=== PATIENT | male | born 1960 | race Caucasian/White ===

== ENCOUNTER 2024-02-06 11:47 | Outpatient (CLI) | payer BC, SELFPAY ==
--- NOTE | 2024-02-06 08:30 | DI.RAD_ITS ---
Exam(s) XR HIP RT COMPLETE AP PELVIS EXAM: XR HIP RT COMPLETE AP PELVIS CLINICAL HISTORY: eval R hip. TECHNIQUE: 2D digital imaging was performed. Two views COMPARISON: No exams were available for comparison FINDINGS: BONES: No acute fracture is present. No bony destructive lesion is seen. Enthesophytes at the iliac wings. JOINTS: No dislocation present. Severe loss of joint space of the right hip. Prominent periarticul ar spurring. Left hip joint space maintained. The SI joints and pubic symphysis are unremarkable. SOFT TISSUE: Calcifications medial right upper thigh. IMPRESSION: Changes of the right hip. DATA REPOSITORY: RADIATION DOSE DELIVERED:
== END 2024-02-06 11:48 | disposition home or self-care (01) ==
LOC: DIORS 11:47
PROVIDERS: PCP Internal Medicine; Visit Provider Student in an Organized Health Care Education/Training Program
DX: M16.11 Unilateral primary osteoarthritis, right hip (principal)
CPT/HCPCS: 73502

== ENCOUNTER 2024-03-12 04:39 | Outpatient (CLI) | payer BC, SELFPAY ==
[2024-03-12 10:16] LABS: HCT 48.5 % (40.0-50.0); HGB 16.6 g/dL (13.5-17.5); MCH 31.4 pg (27.0-33.0); MCHC 34.2 % (32.0-36.0); MCV 92 fL (80-95); MPV 10.2 fL (8.0-11.0); Platelet Count 185 10^3/uL (130-400); RBC 5.29 10^6/uL (4.36-5.78); RDW 12.5 % (11.8-14.1); RDW-SD 42.6 fL; WBC 7.02 10^3/uL (4.4-10.8)
[2024-03-12 10:55] LABS: BUN 22 mg/dL (7-18); CREATININE 1.1 mg/dL (0.70-1.30); Chloride 105 mmol/L (98-107); Estimated GFR 75.43 (mL/min/1.73m2); Glucose 103 mg/dL (74-106); Potassium 4.3 mmol/L (3.5-5.1); Sodium 141 mmol/L (136-145)
== END 2024-03-12 04:40 | disposition home or self-care (01) ==
LOC: LBO 04:39
PROVIDERS: PCP Internal Medicine; Visit Provider Student in an Organized Health Care Education/Training Program
DX: M16.11 Unilateral primary osteoarthritis, right hip (principal); Z01.818 Encounter for other preprocedural examination
CPT/HCPCS: 36415; 80048; 85027

== ENCOUNTER 2024-03-21 07:34 | Day surgery (SDC) | payer BC, SELFPAY ==
[2024-03-21] VITALS (23 sets, daily range): BP systolic 106–162; BP diastolic 61–97; PULSE 54–67; RESP 12–27; TEMP 36.1–36.8; O2SAT 92–98; BMI 31.2
--- NOTE | 2024-03-21 07:05 | W.PM.DSUDISC ---
Date of service: 03/21/24 Discharge Plan Disposition Patient Disposition: Home Condition: Good Discharge Details Reason For Visit: R THR Attending Provider: Aric Ronquillo Primary Care Provider: Xochilt Funes Home Meds and New Rx's Prescriptions: New acetaminophen 500 mg tablet 1,000 mg PO TID Qty: 90 3RF celecoxib 200 mg capsule 200 mg PO BID Qty: 60 0RF pantoprazole 40 mg tablet,delayed release (DR/EC) 40 mg PO DAILY Qty: 30 0RF dexamethasone 4 mg tablet 4 mg PO DAILY Qty: 2 0RF oxycodone 5 mg tablet 5 mg PO Q4H MDD 6 tabs PRN (Reason: pain) Qty: 20 0RF Continued allopurinol 100 mg tablet 100 mg PO DAILY Eliquis 5 mg tablet 5 mg PO BID cetirizine 10 mg tablet 10 mg PO DAILY PRN Discharge Instructions Additional Instructions: Total Hip Discharge Instructions Activity: The most important activity is to walk. You should try to take short walks a few times a day. You have no restrictions on movement or positioning, but do not try to force what you do. You will find some stiffness and weakness with hip flexion (lifting your knee). Do not try to strengthen this too early, continue to practice walking and stairs and this will come. - Outpatient physical therapy can be helpful to help return you to a normal gait and improve your flexibility and strength. This can start around 2 weeks. For some patients, it?s not necessary. Usually this is determined at the time of discharge or at the first post-operative visit. - You should wear the LUCIO hose on both legs for 2 weeks. Dressing: Keep the surgical dressing in place for at least one week. After the first week it may be removed and replace with light gauze and tape or nothing. It may get wet after 3 days but avoid soaking the dressing. If it gets wet, just lightly pat dry. It is important to always keep some gauze between skin folds, especially when you are sitting. Spend some time with the wound exposed when you are lying flat as the incision does wrinkle onto itself. Medications: - You should take Tylenol and an anti-inflammatory Celebrex as your primary pain control medications. If the Celebrex is too expensive or not covered, please call the office for another alternative (Advil/Ibuprofen or Naproxen/Aleve). - You have been prescribed a stronger pain medication Oxycodone for breakthrough pain, take as needed as prescribed. - You have also been prescribed a stomach acid reduction agent Pantoprozole to help reduce stomach acid and reflux. - You have also been prescribed Decadron to help with post-operative nausea and pain. You will take this for two days starting tomorrow. - You will be taking your apixaban for DVT prevention unless instructed otherwise. - If you have constipation you should take Colace or Miralax (both [id number]). It takes most people 3-4 days to have a bowel movement. Follow-up: 2 weeks If you have any acute concerns or questions, please do not hesitate to contact the office at [phone]. You may contact Dr. Ronquillo with any questions after hours through the hospital at [phone] or on his cell phone at [phone]. Referrals: Aric Ronquillo MD [ [facility] STAFF PHYSICIAN] - Equipment/Supplies: Walker Activity:: Activity as Tolerated Shower/Bathe:: 72 hours Diet:: As Tolerated Discharge Orders Discharge Orders: Discharge Order (Routine); Ordered 03/21/24 Ordered By: Bird Malcolm DS: Diagnosis Discharge Diagnosis (1) Degenerative joint disease of right hip: Status: Resolved
[2024-03-21] MEDS: Celecoxib 200 MG CAP 400 MG PO (08:17)
[2024-03-21] MEDS: Acetaminophen 500 MG TAB 1000 MG PO (08:17)
[2024-03-21] MEDS: Normal Saline 500 ML 30 ML IV (08:38)
--- NOTE | 2024-03-21 08:48 | W.ANESPRE ---
General Info Date of Service Date Performed: 03/21/24 Height: 5 ft 7 in Weight: 90.6 kg Body Mass Index (BMI): 31.2 Surgical Procedure: Operation Date: 03/21/24 10:05 Proposed Procedure Side Surgeon p Hip Total Hip Anterior, ACTIS Right Aric Ronquillo MD Meds Allergies and Home Medications Allergies Allergy/AdvReac Type Severity Reaction Status Date / Time grass pollen Allergy Other (See Verified 03/21/24 08:09 Comment) Home Medication ?Medication ?Instructions ?Recorded apixaban 5 mg tablet (Eliquis) 5 mg PO BID 12/07/23 cetirizine 10 mg tablet 10 mg PO DAILY PRN 12/07/23 allopurinol 100 mg tablet 100 mg PO DAILY 03/12/24 acetaminophen 500 mg tablet 1,000 mg (2 x 500 mg) PO TID #90 03/21/24 tabs celecoxib 200 mg capsule 200 mg PO BID #60 caps 03/21/24 dexamethasone 4 mg tablet 4 mg PO DAILY #2 tabs 03/21/24 oxycodone 5 mg tablet 5 mg PO Q4H PRN pain #20 tabs 03/21/24 pantoprazole 40 mg tablet,delayed 40 mg PO DAILY #30 tabs 03/21/24 release Current Visit Medications: Current Medications Generic Name Dose Route Start Last Admin Trade Name Freq PRN Reason Stop Dose Admin Acetaminophen 1,000 mg 03/21/24 06:00 03/21/24 08:17 Acetaminophen 500 Mg Tab PO 03/21/24 23:59 1,000 mg PREOP ERYN Administration Acetaminophen 1,000 mg 03/21/24 07:03 Acetaminophen 500 Mg Tab PO 04/20/24 07:02 TID PRN PRN Analgesia Celecoxib 400 mg 03/21/24 06:00 03/21/24 08:17 Celecoxib 200 Mg Cap PO 03/21/24 23:59 400 mg PREOP ERYN Administration Docusate Sodium 100 mg 03/21/24 07:03 Docusate Sodium 100 Mg Cap PO 04/20/24 07:02 BID PRN PRN Constipation Cefazolin Sodium/Dextrose 2 gm in 50 mls @ 100 mls/hr 03/21/24 06:00 Ancef Duplex IVPB 03/21/24 23:59 PREOP ERYN Tranexamic Acid/Sodium Chloride 1,000 mg in 100 mls @ 600 mls/hr 03/21/24 06:00 IVPB 03/21/24 23:59 PREOP ERYN Sodium Chloride 500 mls @ 30 mls/hr 03/21/24 08:00 03/21/24 08:38 Saline 500ml Bag IV 04/20/24 07:59 30 mls/hr INFUSION ERYN Administration IV Miscellaneous Supplies 1 each 03/21/24 06:00 Iv Access IV 03/21/24 23:59 DIRECTED ERYN Ondansetron HCl 4 mg 03/21/24 07:03 Ondansetron 4 Mg/2 Ml Vial IVP 04/20/24 07:02 Q6H PRN PRN Nausea Oxycodone HCl 0 mg 03/21/24 07:03 Oxycodone 5 Mg Tab PO 04/20/24 07:02 Q3H PRN PRN Pain Polyethylene Glycol 17 gm 03/21/24 07:03 Polyethylene Glycol 3350 17 Gm Packet PO 04/20/24 07:02 BID PRN PRN Constipation Sodium Chloride 0 ml 03/21/24 06:00 Normal Saline Flush 10 Ml Syr IV 03/21/24 23:59 PRN PRN Sodium Chloride 0 ml 03/21/24 06:00 Normal Saline 10 Ml Vial IJ 03/21/24 23:59 DIRECTED PRN Sterile Water 0 ml 03/21/24 06:00 Water,Injection,Sterile 10 Ml Vial IJ 03/21/24 23:59 DIRECTED PRN PFSH Active Problems Active Problems: Problem Status Onset Code Degenerative joint disease of right hip Chronic M16.11 Protein C deficiency Acute D68.59 Prostate nodule Acute N40.2 Prediabetes Acute R73.03 Acute pulmonary embolism Acute I26.99 Medical History Medical History Kidney stones DVT of lower extremity (deep venous thrombosis) Tobacco Smoking/Tobacco Use Status: Never Alcohol Alcohol Intake: current Alcohol intake frequency: a few times a week Substance Use Substance use: Never Substance use type: does not use Vital Signs and Lab Results Vital Signs Most Recent Vital Signs in EMR: Most Recent Vital Signs Temp Pulse Resp BP Pulse Ox 36.8 C 65 20 162/97 H 93 03/21/24 08:03 03/21/24 08:03 03/21/24 08:03 03/21/24 08:03 03/21/24 08:03 Lab Results Blood Type / Crossmatch: No Data to Display Complete Blood Count: White Blood Count 7.02 10^3/uL (4.4-10.8) 03/12/24 10:08 Red Blood Count 5.29 10^6/uL (4.36-5.78) 03/12/24 10:08 Hemoglobin 16.6 g/dL (13.5-17.5) 03/12/24 10:08 Hematocrit 48.5 % (40.0-50.0) 03/12/24 10:08 Platelet Count 185 10^3/uL (130-400) 03/12/24 10:08 Complete Metabolic Panel: Sodium 141 mmol/L (136-145) 03/12/24 10:08 Potassium 4.3 mmol/L (3.5-5.1) 03/12/24 10:08 Chloride 105 mmol/L (98-107) 03/12/24 10:08 Carbon Dioxide 26.0 mmol/L (21.0-32.0) 03/12/24 10:08 BUN 22 mg/dL (7-18) H 03/12/24 10:08 Creatinine 1.1 mg/dL (0.70-1.30) 03/12/24 10:08 Est GFR (CKD-EPI 2020) 75.43 (mL/min/1.73m2) 03/12/24 10:08 Calcium 9.0 mg/dL (8.5-10.1) 03/12/24 10:08 Glucose 103 mg/dL (74-106) 03/12/24 10:08 Liver Function Panel: No Data to Display Coagulation Panel: No Data to Display Cardiac Panel: No Data to Display Arterial Blood Gas: No Data to Display Venous Blood Gas: No Data to Display Pancreas Panel: No Data to Display Thyroid Panel: No Data to Display Infectious Disease: No Data to Display Blood Cultures: No Data to Display Toxicology Panel: No Data to Display Anesthesia Assessment and Plan Anesthesia History Personal History: No History of Anesthesia Complications Family History: No Family History of Anesthesia Complications Exercise Tolerance Exercise Tolerance: Metabolic Equivalents>4 Pertinent Negatives Pertinent Negatives: No Symptoms of GERD, No Major Cardiovascular Symptoms or Complaints, No Major Pulmonary Symptoms or Complaints and No History of CVA/TIA Cardiac & Pulmonary Exam Cardiac Exam: Normal S1/S2 Heart Sounds Pulmonary Exam: Clear Bilateral Breath Sounds Implantable Cardiac Device Does patient have a Pacemaker or an ICD?: No Airway Exam Known Difficult Airway: No Mallampati Class: 1 Mouth Opening: Normal (> 3cm) Thyromental Distance: Greater than 3 cm Neck Range of Motion: Full ROM Neck Circumference: Normal Teeth Condition: Normal Dentition ASA Classification ASA Score: ASA 2 Emergency Case?: No NPO Status NPO Status: NPO Clears >2 hours, Solids >8 hours Anesthesia Plan Resuscitation Status: Full Code Anesthesia Technique: Spinal Anesthesia Airway Planned: Natural Airway Monitors Used: Standard Monitors
[2024-03-21] MEDS: ceFAZolin 2 GM/50 ML BAG IVPB (10:03)
[2024-03-21] MEDS: TRANEXAMIC ACID/SOD. CHL. 1,000 MG/100 ML BAG 600 MG IVPB (10:10)
--- NOTE | 2024-03-21 11:10 | DI.RAD_ITS ---
Exam(s) XR HIP RT IN OR EXAM: XR HIP RT IN OR CLINICAL HISTORY: Osteoarthritis of right hip. TECHNIQUE: 2D and realtime digital imaging was performed. COMPARISON: CR XR HIP RT COMPLETE AP PELVIS from 02/06/2024 FINDINGS: A hard copy image shows placement of a right hip prosthesis. The alignment appears satisfactory. Please see procedure note for details. Fluoro time: 32seconds RADIATION DOSE DELIVERED: Kar=4.43 mGy
--- NOTE | 2024-03-21 11:21 | W.PM.OP ---
Operative Note Operative Note PRE-OP DIAGNOSIS: Right Hip Osteoarthritis POST-OP DIAGNOSIS: same PROCEDURE: Right Anterior Total Hip Arthroplasty with Intraoperative Navigation SURGEON: Aric Ronquillo RESTAURANT DELIVERY DRIVER: Bird Malcolm ANESTHESIA TYPE: Spinal Refer to Anesthesia Record ESTIMATED BLOOD LOSS: 100 PATHOLOGY: none sent TOURNIQUET TIME: 0 COMPLICATIONS: None Patient was transported to: PACU Patient's condition: stable Implants: 1. Depuy [place] Acetabular Component, 54mm 2. Depuy Acetabular Liner, [id number] 3. Depuy Actis High Offset Collared Femoral Stem, Size 6 4. Depuy Altrx Ceramic Femoral Head, Size 36+1.5mm Indications: I have seen Rick in clinic for symptoms of hip arthritis, confirmed with radiographic findings. He has exhausted nonoperative methods and was having significant limitations in daily function and desired better function and less pain. I discussed the technical details of a hip replacement. I explained the risks of the procedure to include, but not limited to, bleeding, infection, pain, stiffness, fracture, damage to nerves and vessels, damage to muscles and tendons, loosening, instability, leg length inequality, need for repeat procedure, blood clot and cardiopulmonary demise. Despite these risks, Rick elected to proceed. Findings: There was significant signs of arthritis throughout the hip, particularly about the femur. Procedure Description: Abbe was greeted in the preoperative holding area where the correct side was identified and marked. The consent was reviewed with the patient and signed. The history and physical was updated. All questions were answered. He was taken back to the operating room. A spinal anesthestic was then administered. The feet were wrapped with cast padding and Coban and then placed into the boot liners and then into the boots. Care was taken to protect the skin and make sure the heels were fully down and the boots were stable. The patient was then positioned onto the HANA table. Both legs were held in a neutral position. SCDs were applied. The patient was then slid down onto a peroneal post. Prophylactic antibiotics in the form of Cefazolin were administered. 1g of Tranxemic Acid was given intravenously within 30 minutes of incision. The right leg was then prepped with Chloraprep and draped in a standard fashion. A second prep with Chloraprep was performed prior to placement of a shower-curtain type drape with Iodine impregnated skin protection. A timeout to confirm correct identity, side and site, procedure, allergies, anesthesia, and medical concerns was performed. An obliquely oriented incision was made starting lateral to the ASIS and running distal over the Tensor Fascia Dang (TFL) muscle belly toward the fibular head, approximately 10cm. The skin and soft tissue was dissected sharply, through Lorraine?s fascia, and to the fascia of the TFL. With the fascia and superior border of the IT band identified, the fascia was incised with a new knife just above any perforators from the IT band. The TFL muscle belly was bluntly dissected away from the fascia and moved laterally. The fat between TFL and rectus was identified to ensure the dissection was not within the TFL. Blunt dissection created space between abductors and the capsule and retractor was placed over the lateral femoral neck. The fibers of the rectus femoris tendon were identified and these were freed from the anterior capsule. A second cobra retractor was placed around the medial femoral neck. The TFL was further retracted laterally to show the deep fascia. Careful dissection through this layer identified three main crossing vessels of the lateral femoral circumflex. These were cauterized in multiple locations and then cut without any noticeable bleeding. The TFL was further released bluntly from the deep fascia to expose anterior hip capsule and fat The soft tissue orthopaedic retractor was then placed beneath the TFL and against sartorius and medial soft tissues to protect and retract the soft tissues. A T-capsulotomy was then performed starting at the superior lateral acetabulum and moving distally to the intertrochanteric ridge. These capsular flaps were tagged with a No. 1 Ethibond and elevated from within. The capsular flaps were released to the shoulder of the lateral neck and to the lesser trochanter to give excellent visualization of the proximal femur. A neck osteotomy was performed using an oscillating saw based on preoperative templates. This cut started in the shoulder and of the lateral neck and exited medially. The saw was at all times directed medially to avoid injury to the greater trochanter. Gross traction was applied to the leg and the osteotomy opened. The femoral head was removed with a corkscrew, making sure to protect the TFL on its exit. Traction was released after head removal. This was measured on the back table to determine the starting reamer size. Portions of the rectus obscuring visualization were minimally elevated off the superior acetabulum. An anterior retractor was placed over the anterior wall between capsule and labrum and attached to the Gripper retraction system. The femur was rotated to 90 degrees and medial capsule was fully released until the lesser trochanter was palpable and visible; the femur was returned to 30 degrees. A posterior retractor was placed similarly between capsule and labrum. This provided excellent visualization. The contents of the cotyloid fossa were removed with electrocautery and the labrum was removed with a knife. There was a notable floor osteophyte. There was significant chondromalacia of the superior acetabulum. Acetabular reaming began with a 48mm reamer. This first reaming was directed anterior to posterior and medial to get down to the true floor. This was inspected and reamed until the true floor was reached. The anterior retractor was then released and entry and exit was provided by traction on the capsular flaps. I then reamed sequentially up to a 54mm reamer where good fit was obtained. The larger reamers were oriented based on anatomical reference of the anterior and lateral dumont to ensure proper abduction and anteversion. Positioning and size was confirmed with the fluoroscopy. A 54mm Depuy [place] acetabular component was selected. The acetabulum was reamed around the periphery with the selected acetabular size to prevent a rim fit. The deep tissues were irrigated. The acetabular component was then impacted in a position of about 40-45 degrees of abduction and 15-20 degrees of anteversion, using the patient?s anatomy as the ultimate landmark. Fluoroscopy was used to confirm this. There was excellent character actor of the acetabular component and the inserting handle was removed. The acetabular liner, Depuy [id number] polyethylene liner, was inserted and lined up with the tines of the acetabular component. There was no soft tissue interposition. The liner was then impacted into position and confirmed to be well-seated. A portion of the karen-articular cocktail was then injected around the acetabulum into the capsule and periosteum. This cocktail consisted of 123mg of Ropivacaine, 0.25mg of Epinephrine, 0.04mg of Clonidine, and 15mg of Ketorolac, diluted to 50cc. The leg was rotated to 120 degrees. Any remaining medial capsule was released until the lesser trochanter was easily palpable. A retractor was placed medially. The lateral capsule was further released into the shoulder to allow access to the greater trochanter. A Hair retractor was placed over the greater trochanter which allowed the trochanter to flip in front of the capsule for excellent exposure. The leg was brought down into maximal extension and 20 degrees of adduction while ensuring there was no impingement on the acetabulum. Any remnant capsule within the trochanter was released. Piriformis and obturator externis were identified and protected. There was excellent access to the proximal femur. The lateral neck remnant was removed with a rongeur. A blunt canal probe was used to identify the canal and trajectory for later broaching. A box osteotome initiated the broach course. A small curved rasp and a curved curette were used to work laterally. Broaching then began with a starter Actis broach. This was inserted manually around the trochanter and into the canal before mallet blows. The broach was seated to a few millimeters below the cut level based on the neck cut and the preoperative template. Sequential broaching was continued with the Dubbse pneumatic broaching device until a tight fit was obtained with good rotational control of the femur. A trial high offset neck was inserted along with a +1.5 trial head. The leg was brought out of extension and adduction and then reduced with traction and internal rotation. The leg was stable anteriorly in a position of 30 degrees of extension and 90 degrees of external rotation. Fluoroscopy was used to ensure there was no fracture and the stem was seated well. Leg lengths were checked with an AP pelvis and pelvic reference points. Laiyaoyao navigation system was used to confirm appropriate positioning and leg length and offset. Once content with the desired offset and leg lengths, the leg was brought back into extension, external rotation and adduction. The periosteum and surrounding tissue was injected with remaining portion of the karen-articular cocktail. The proximal femur was irrigated as well as the deep tissues. The [employer] Actis high offset collared stem, size 6, was then manually inserted into the proximal femur making sure to control rotation. It was then malleted into position with light blows, giving breaks to allow bone expansion and decrease risk of fracture. The selected Depuy Altrx Ceramic Head, size 36+1.5mm, was then placed onto the clean and dry trunnion and secured with impaction onto the tapered fit. The leg was brought back out of extension and adduction and reduced with traction and internal rotation. Stability was confirmed with no shuck at 90 degrees of external rotation and 30 degrees of extension. No impingement through range of motion arc. Final x-ray images were obtained with fluoroscopy to confirm adequate positioning and no intraoperative fracture. The deep tissues were thoroughly irrigated with Surgiphor, betadine solution. This was allowed to sit in the wound for 3 minutes before being thoroughly irrigated out with normal saline. The capsule was then reapproximated with the previously placed Ethibond sutures. The TFL fascia was finally closed with a No. 2 Stratafix, barbed suture. Deep tissues were then reapproximated with 0 Vicryl and a running 2-0 Vicryl. The skin was closed with a running 4-0 Monocryl in a subcuticular fashion. This was reinforced with skin glue. A Mepilex silver dressing was applied. At the end of the case, all counts were correct. Abbe was transferred to the hospital bed without difficulty and suffering no apparent complication. Abbe has a good prognosis. Physical therapy will start today and without restrictions, weight-bearing as tolerated. His home dose of Eliquis 5mg BID will be used for DVT prophylaxis. Date of Procedure: 03/21/24
[2024-03-21] MEDS: HYDROmorphone 1 MG/ML SYR IVP ×2 (11:47→11:58)
--- NOTE | 2024-03-21 13:28 | W.ANESPOSTOP ---
Postoperative Evaluation Date, Time and Location Date Performed: 03/21/24 Time Performed: 13:21 Patient Location: Day Surgery Unit Vital Signs Most Recent Imported Vital Signs: Most Recent Vital Signs Temp Pulse Resp BP Pulse Ox 36.4 C L 62 18 161/93 H 96 03/21/24 12:56 03/21/24 12:56 03/21/24 12:56 03/21/24 12:56 03/21/24 12:56 Pain Score Most Recent Pain Score: Most Recent Pain Score Pain Level 3 03/21/24 12:56 Assessment Mental Status: Awake (Alert & Oriented to Patient Baseline) Airway and Respiratory Function: Patent airway with normal (patient baseline) respiratory exam Cardiovascular Function: Hemodynamically Stable Hydration Status: Adequately Hydrated Nausea & Vomiting: No Nausea or Vomiting Pain: Pain is tolerable per patient Peripheral Nerve Block: Patient did not receive a nerve block
--- NOTE | 2024-03-21 13:50 | PT.INIE ---
PT Notes Visit Reasons: R THR Physical Therapy Day Surgery Initial Evaluation Date: 03/21/2024 Referring Doctor: Dr. Ronquillo PT Orders: PT CONSULT: Status post Ortho surgery Precautions: Activity as tolerated, WBAT right lower extremity,TEDS x 2 weeks Patient Profile/Admitting Diagnosis: Patient is 63-year-old male presenting status post elective right total hip replacement secondary to DJD with spinal anesthesia. Postop uncomplicated PMHX: DJD, protein C deficiency, prediabetic, history of DVT with PE 2019 after running a marathon Social History/Home Situation: Patient resides with in two-story home with 4 steps to enter with 1 rail and flight of stairs with 1 rail to bedroom. 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 Patient drives. Patient independent with ambulation, ADLs, IADLs, household tasks, yard work and meal preparation. available to assist with meal prep transportation until patient able to resume driving Equipment Owned/DME: FWW, tub seat, grab bar and shower Subjective: Patient reports he is feeling well and eager to start moving. Objective: General Observation: Patient received semireclined on stretcher with ice pack to right hip. present Mental Status: Alert and oriented x 4 motivated cooperative agreeable to participate in evaluation Pain: 2/10 right hip ROM: Right Upper Extremity: WNL Left Upper Extremity: WNL Right Lower Extremity: Within normal limits except hip flexion 95 degrees, hip abduction 15 degrees Left Lower Extremity: Within normal limits Strength: Right Upper Extremity: 5/5 Left Upper Extremity: 5/5 Right Lower Extremity:Hip flexion: 3/5; hip abduction: 2+/5; hip extension: 3 -/5; knee extension: 3/5; knee flexion: 3 -/5 ankle DF: 4/5 ; ankle PF: 4/5 Left Lower Extremity: 5/5 Sensation: Intact Bed Mobility/Transfers: Supine to sit independent Sit to supine CGA with increased time for right lower extremity Sit to stand independent Stand to sit independent Bed to chair supervision with FWW Gait: patient ambulated 200 feet level surfaces including turns with FWW supervision reciprocal pattern with slight increase weight shift to left lower extremity to advance right lower extremity step length equal Stairs: 4 steps with 1 rail step to pattern supervision Balance: Static Sitting: Normal Dynamic Sitting: Good Static Standing: Normal Dynamic Standing: Good- Special Tests: Mobility Limitations Standardized Measure [facility] AM-PAC 6 clicks Basic Mobility Inpatient Short Form: Raw Score: 23 CMS Score: 11.20% Informed Consent/Education: Patient instructed in purpose of PT consult. Packet containing ANNE exercise protocol has been given to patient. Education and training on initial set of exercises that can be done at home have been completed with patient. Assessment: Patient is a 63-year-old male presents with clinical signs and symptoms consistent with current/admitting diagnoses that have resulted to mobility limitations, gait instability, generalized weakness, and impairment of motor control as demonstrated by the following impairment level findings: 1. Decreased strength to right hip major muscle groups 2. Impaired standing balance 3. Limitation of joint range of motion in right hip 4. Decrease standing functional activity tolerance Impairments are contributing to the following functional limitations: 1. Inability to safely ambulate without assistive device 2. Increase completion time for mobility ADL performance 3. Increased fall risk 4. Inability to perform stairs independently and safely Patient is assessed as a low complexity based on the following: History: 63-year-old male with impairment level findings, functional limitations, and past medical history as indicated above Examination: Demonstrable impairment in strength, balance, and mobility level with underlying impairments and functional limitations as documented above Presentation: Stable Decision Making: Low Goals: N/A. Plan of Care/Treatment Plan: N/A. DISCHARGE RECOMMENDATIONS: Home with home exercise program TREATMENT CODE/TIME: [id number] Thank you for the opportunity to participate in the care of this patient. Cookie Oliveira PT Please sign an return this page within 30 days if you agree with the above POC. Thank you! Physician Signature Date [facility]
== END 2024-03-21 14:28 | disposition home or self-care (01) ==
LOC: SUR 07:35
PROVIDERS: PCP Internal Medicine; Visit Provider Student in an Organized Health Care Education/Training Program
PROC: (CPT 27130; principal; 2024-03-21 09:45)
DX: M16.11 Unilateral primary osteoarthritis, right hip (principal); R73.03 Prediabetes; Z86.711 Personal history of pulmonary embolism; Z79.01 Long term (current) use of anticoagulants
CPT/HCPCS: 27130; 20985; 97161; 73501; C1776; J0131; J0690; J1100; J1171; J2250; J2371; J2401; J2405; J2704

== ENCOUNTER 2024-04-05 15:40 | Outpatient (CLI) | payer BC, SELFPAY ==
--- NOTE | 2024-04-05 10:16 | DI.RAD_ITS ---
Exam(s) XR HIP RT COMPLETE AP PELVIS EXAM: XR HIP RT COMPLETE AP PELVIS CLINICAL HISTORY: F/U RIGHT ANNE. TECHNIQUE: 2D digital imaging was performed. Two views COMPARISON: CR XR HIP RT COMPLETE AP PELVIS from 02/06/2024 FINDINGS: BONES: No acute fracture is present. No bony destructive lesion is seen. JOINTS: No dislocation present. Stable alignment of right hip prosthesis. No abnormal surrounding lucencies. Left hip joint space is maintained. SOFT TISSUE: Calcifications again noted in right upper thigh. IMPRESSION: Stable appearance of right hip prosthesis. DATA REPOSITORY: RADIATION DOSE DELIVERED:
== END 2024-04-05 15:41 | disposition home or self-care (01) ==
LOC: DIORS 15:40
PROVIDERS: PCP Internal Medicine; Visit Provider Physician Assistant
DX: Z96.641 Presence of right artificial hip joint (principal); Z47.1 Aftercare following joint replacement surgery
CPT/HCPCS: 73502

== ENCOUNTER 2025-03-25 11:18 | Outpatient (CLI) | payer BC, SELFPAY ==
--- NOTE | 2025-03-25 07:45 | DI.RAD_ITS ---
Exam(s) XR HIP RT AP LAT ONLY EXAM: XR HIP RT AP LAT ONLY CLINICAL HISTORY: ANNUAL F/U R ANNE. TECHNIQUE: 2D digital imaging was performed. Two images were obtained. AP and lateral views were obtained. COMPARISON: CR XR HIP RT COMPLETE AP PELVIS from 02/06/2024 XA XR HIP RT IN OR from 03/21/2024 CR XR HIP RT COMPLETE AP PELVIS from 04/05/2024 FINDINGS: BONES: There are stable post operative changes of a right total hip arthroplasty present. No fracture or dislocation. JOINTS: The orthopedic hardware is in good position. No evidence of hardware loosening. SOFT TISSUE: There are stable dystrophic calcifications in the medial right thigh. IMPRESSION: Stable right total hip arthroplasty. DATA REPOSITORY: RADIATION DOSE DELIVERED:
== END 2025-03-25 11:19 | disposition home or self-care (01) ==
LOC: DIORS 11:18
PROVIDERS: PCP Internal Medicine; Visit Provider Student in an Organized Health Care Education/Training Program
DX: Z96.641 Presence of right artificial hip joint (principal)
CPT/HCPCS: 73502